=== PATIENT | male | born 1975 | race African-American/Black ===

== ENCOUNTER 2018-03-22 21:35 | Inpatient (IN) | payer OTHER ==
[~2018-03-22] VITALS: Ht 167.6 cm; Wt 81.6 kg
[2018-03-22 21:48] VITALS: BP 148/58
--- NOTE | 2018-03-22 21:48 | NUR ---
ED Nurse Note: PTCAME TO ED C/O OF ABD NAIMA FOR 4 HOURS TODAY PT HAS HAD PREVIOUS HERNIAL OPERATION. PER PT PAIN 10/10 PAIN IS ON LEFT UPPER QUDRANT
--- NOTE | 2018-03-22 21:51 | Emergency Room Report ---
History of Present Illness General Chief Complaint: Abdominal Pain Source: Patient Present Illness HPI Is a 42-year-old male who had a recent left inguinal hernia surgery done at [facility] 4 days ago. Since then he had bowel movement and eating okay. He presents with abdominal pain started about 4 hours ago. Mostly in the right side. Pain is sharp and crampy. 9 out of 10. Worse with palpation. Worse with movement. No relief with his hydrocodone. Denies any fever chills but denies any trauma. No diarrhea. No vomiting. Allergies: Coded Allergies: No Known Allergies (Unverified , 03/22/18) Patient History Past Medical History: see triage record, old chart reviewed Past Surgical History: other Pertinent Family History: none Social History: Denies: smoking Immunizations: other Reviewed Nursing Documentation: PMH: Agreed; PSxH: Agreed Nursing Documentation-PMH Past Medical History: No History, Except For Hx Hypertension: Yes Review of Systems Eye: Denies: eye pain, blurred vision ENT: Denies: ear pain, nose congestion, throat swelling Respiratory: Denies: cough, shortness of breath Cardiovascular: Denies: chest pain, palpitations Gastrointestinal: Reports: abdominal pain; Denies: diarrhea, nausea, vomiting Musculoskeletal: Denies: back pain, joint pain Skin: Denies: rash Neurological: Denies: headache, numbness Endocrine: Denies: increased thirst, increased urine Hematologic/Lymphatic: Denies: easy bruising All Other Systems: negative except mentioned in HPI Physical Exam Vital Signs Date Time Temp Pulse Resp B/P (MAP) Pulse Ox O2 Delivery O2 Flow Rate FiO2 03/22/18 21:28 97.5 88 16 148/58 96 Room Air vitals unremarkable Sp02 EP Interpretation: reviewed, normal General Appearance: well appearing, no apparent distress, alert Head: normocephalic, atraumatic Eyes: bilateral eye PERRL, bilateral eye EOMI ENT: hearing grossly normal, normal pharynx Neck: full range of motion, supple, no meningismus Respiratory: chest non-tender, lungs clear, normal breath sounds Cardiovascular #1: regular rate, rhythm, no murmur Gastrointestinal: normal bowel sounds, no mass, no organomegaly, no bruit, non- distended, tenderness - Diffuse, other - Surgical sites clean and dry. Musculoskeletal: back normal, gait/station normal, normal range of motion Psychiatric: mood/affect normal Skin: warm/dry Medical Decision Making Diagnostic Impression: Primary Impression: SBO (small bowel obstruction) ER Course Patient presents with abdominal pain and had small bowel obstruction on CT scan. NG tube placed. Ration is kept nothing by mouth. Patient will be admitted with surgical consultation. I discussed case with Dr. Patrick who will admit. I consulted Dr. Harrell for surgery. Lab Results Impression labs normal Other X-Ray Diagnostic Results Other X-Ray Diagnostic Results : X-Ray ordered: KUB # of Views/Limited Vs Complete: 1 View Indication: Pain EP Interpretation: Yes Interpretation: no dislocation, no soft tissue swelling, no fractures, nonspecific bowel gas, other - NG tube in good position Impression: Other - NGT in stomach Electronically Signed by: Jomar Ruano MD CT/MRI/US Diagnostic Results CT/MRI/US Diagnostic Results : Imaging Test Ordered: CT abdomen and pelvis Impression SBO per radiologist Last Vital Signs Date Time Temp Pulse Resp B/P (MAP) Pulse Ox O2 Delivery O2 Flow Rate FiO2 03/22/18 21:28 97.5 88 16 148/58 96 Room Air Status: improved Disposition: ADMITTED INPATIENT Condition: Serious Jomar Ruano MD Mar 22, 2018 21:51
[2018-03-22] MEDS ORDERED: Morphine Sulfate 4mg/ml Inj (IV/IM USE ONLY) IVP ONE (22:00)
--- NOTE | 2018-03-22 22:05 | NUR ---
ED Nurse Note: PT WENT TO CT
[2018-03-22] MEDS ORDERED: AMLODIPINE BESY10 MG ORAL (22:11)
[2018-03-22] MEDS ORDERED: NORCO 5-325 TA1 EACH ORAL (22:12)
[2018-03-22 22:18] LABS: EOSINOPHILS % (AUTO) 0.9 % (0.0-3.0); HEMATOCRIT 36.8 % (42.0-52.0); HEMOGLOBIN 12.5 G/DL (14.2-18.0); LYMPHOCYTES % (AUTO) 20.8 % (20.0-45.0); MEAN CORPUSCULAR VOLUME 89 FL (80-99); MONOCYTES % (AUTO) 4.3 % (1.0-10.0); PLATELET COUNT 166 K/UL (150-450); RED BLOOD COUNT 4.15 M/UL (4.70-6.10); RED CELL DISTRIBUTION WIDTH 11.3 % (11.6-14.8); WHITE BLOOD COUNT 9.4 K/UL (4.8-10.8)
[2018-03-22 22:20] LABS: APPEARANCE,URINE CLEAR; BILIRUBIN, URINE NEGATIVE (NEGATIVE); COLOR,URINE PALE YELLOW; GLUCOSE, URINE (UA) NEGATIVE (NEGATIVE); KETONES,URINE 4+ (NEGATIVE); LEUKOCYTE ESTERASE ,URINE 1+ (NEGATIVE); NITRITE,URINE NEGATIVE (NEGATIVE); PH,URINE 5 (4.5-8.0); PROTEIN,URINE 1+ (NEGATIVE); UROBILINOGEN,URINE NORMAL MG/DL (0.0-1.0)
--- NOTE | 2018-03-22 22:21 | NUR ---
ED Nurse Note: PT BACK FROM CT
[2018-03-22 22:33] LABS: ALANINE AMINOTRANSFERASE 17 U/L (12-78); ALBUMIN/GLOBULIN RATIO 0.9 (1.0-2.7); ALKALINE PHOSPHATASE 69 U/L (46-116); ANION GAP 9 mmol/L (5-15); ASPARTATE AMINO TRANSFERASE 19 U/L (15-37); BILIRUBIN,TOTAL 1.1 MG/DL (0.2-1.0); BLOOD UREA NITROGEN 13 mg/dL (7-18); CALCIUM 9.2 MG/DL (8.5-10.1); CARBON DIOXIDE 30 MMOL/L (21-32); CHLORIDE 100 MMOL/L (98-107); CREATININE 1.3 MG/DL (0.55-1.30); POTASSIUM 3.7 MMOL/L (3.5-5.1); SODIUM 139 MMOL/L (136-145)
[2018-03-22 22:36] LABS: BILIRUBIN,DIRECT 0.2 MG/DL (0.0-0.3)
--- NOTE | 2018-03-22 23:06 | NUR ---
ED Nurse Note: PT NG PALCE PER ERMD, ORDER PT VOMITED, AMOUNT SUCTIONED OF RIGHT NOW 750 ML
[2018-03-22 23:16] VITALS: BP 142/87
--- NOTE | 2018-03-22 23:24 | NUR ---
ED Nurse Note: TELEPHONE REPORT GIVEN TO AYE MOODY
--- NOTE | 2018-03-22 23:40 | NUR ---
ED Nurse Note: awaiting pt packet that transfer pt
--- NOTE | 2018-03-22 23:58 | NUR ---
ED Nurse Note: PT WAS TRANSFERRED WITH [facility], ALL BELONGINGS TAKEN WITH PT. PT IS AOX4, NG INTACT AND PATENT, PT IS ON ROOM AIR. VSS.
[2018-03-23] VITALS: BP 123/80
--- NOTE | 2018-03-23 00:18 | NUR ---
NURSE NOTES: Received pt from ED. Ambulatory and alert & oriented x4, belongings given to . No distress noted. NGT on low intermittent suction. Attempted to contact Dr. Patrick for admission orders. Awaiting for response. Pt in stable condition. Will continue to monitor.
--- NOTE | 2018-03-23 03:01 | NUR ---
NURSE NOTES: Still waiting for Dr. Patrick's admission orders. Left another message, attempting to contact
[2018-03-23] MEDS ORDERED: Morphine Sulfate 2mg/ml Inj IVP PRN (03:15)
[2018-03-23 04:00] VITALS: BP 128/73
--- NOTE | 2018-03-23 07:01 | NUR ---
HAND-OFF: Report given to AYE Christensen.
--- NOTE | 2018-03-23 07:54 | NUR ---
NURSE NOTES: pt in bed with no sob nor in any form of distress noted. NG tube intact and connected to LIS. no c/o discomfort nor n/v at this time. denies any abdomen pain. will continue to monitor
[2018-03-23 08:00] VITALS: BP 134/79
--- NOTE | 2018-03-23 09:14 | Diagnostic Imaging Report ---
Indication: Abdominal pain, 4 days status post left inguinal hernia surgery Technique: Spiral acquisitions obtained through the abdomen and pelvis. No oral contrast utilized, per emergency room physician request No IV contrast utilized, per emergency room physician request.. Multiplanar reconstructions were generated. Total dose length product 622.46 mGycm. CTDIvol(s) 11.12 mGy. Dose reduction achieved using automated exposure control Comparison: None Findings: Small line of surgical skin mariaelena is seen in the left upper quadrant, and another in the left lower quadrant. There is no evidence of recurrent inguinal hernia. There is a small amount of free intraperitoneal fluid present, in the pelvis, right paracolic gutter and Morison's pouch, and over the dome of the liver. Bubbles of gas are seen in the central peritoneal space and over the anterior dome of the liver. There is some fluid in between the layers of the left upper quadrant abdominal wall musculature. There is a small fluid containing umbilical hernia. In the left lower quadrant and left mid abdomen, there are dilated small bowel loops which contain small bowel feces distally. Distal small bowel loops are normal in caliber or collapsed. Exact transition point is not identified although may be in the lower central mid abdomen. The appendix is normal. No small bowel wall thickening. The stomach is distended. The distal esophagus is unremarkable. Lack of IV contrast limits assessment of the solid organs. The liver, gallbladder, bile ducts, pancreas, spleen, adrenals and kidneys are all unremarkable. No retroperitoneal or mesenteric mass or adenopathy. No pelvic mass or adenopathy. The included lung bases demonstrate posterior dependent atelectatic changes. The bones demonstrate minimal degenerative thoracic spondylosis changes. Impression: Dilated small bowel loops with small bowel feces and transition to collapsed distal small bowel in the lower midabdomen, suspicious for small bowel obstruction. Given history of recent surgery, possibility of an atypical manifestation of postoperative ileus should also be considered. Postsurgical changes, as described Gastric distention, presumably related to the above Posterior dependent atelectatic pulmonary parenchymal changes This agrees with the preliminary interpretation provided overnight by [facility] teleradiology service. Critical value findings were provided to the emergency room by [facility] and communication documented The CT scanner at [facility] is accredited by the [employer] and the scans are performed using protocols designed to limit radiation exposure to as low as reasonably achievable to attain images of sufficient resolution adequate for diagnostic evaluation.
[2018-03-23] MEDS: Piperacillin/Tazobactam 3.375 GM in NS 110 ML IVPB SCH ×2 (09:15→18:05)
--- NOTE | 2018-03-23 09:15 | History and Physical Report ---
DATE OF ADMISSION: 03/22/2018 CHIEF COMPLAINT: Small bowel obstruction. HISTORY OF PRESENT ILLNESS: The patient is a pleasant 42-year-old male. He had an elective hernia repair done approximately 4 to 5 days ago. He was discharged home. According to the patient, he has had approximately 2 bowel movements that were only small since his surgery. On evaluation of the emergency room, he had a CT scan of the abdomen that showed a small bowel obstruction. NG tube was placed. The patient is now admitted. PAST MEDICAL HISTORY: Significant for history of hypertension. PAST SURGICAL HISTORY: As above. CURRENT MEDICATIONS: Reconciled and reviewed. ALLERGIES: None. FAMILY HISTORY: None. SOCIAL HISTORY: Negative for tobacco, ethanol, or drugs. REVIEW OF SYSTEMS: Negative except for abdominal pain. PHYSICAL EXAMINATION: VITAL SIGNS: Temperature 98.5, pulse 78, respirations 18, and blood pressure 128/73. GENERAL: The patient is well developed and in no apparent distress. HEART: Regular rate and rhythm. LUNGS: Clear. ABDOMEN: Soft, nontender, and nondistended. EXTREMITIES: Without clubbing, cyanosis, or edema. LABORATORY DATA: Sodium 139, potassium 3.7, BUN 13, and creatinine 1.3. White count was 9 and hemoglobin 12. Urine was clear. ASSESSMENT: This is a pleasant male, status post inguinal hernia repair, admitted now with small bowel obstruction. PLAN: 1. NPO. 2. NG tube to low-intermittent suction. 3. Antibiotics. 4. Surgical consultation. 5. Narcotics if possible. Ian Patrick M.D. DR: NICHOLE JOB#: [id number] CC:
--- NOTE | 2018-03-23 11:51 | Diagnostic Imaging Report ---
Indication: Post nasogastric tube placement Technique: Supine view of the abdomen Comparison: none Findings: Nasogastric tube in place, tip ejected level gastric fundus, proximal port just beyond the expected region of the gastroesophageal junction. Surgical mariaelena are seen in the left upper quadrant and left lower quadrant. Impression: Satisfactory nasogastric tube placement Other findings as described
[2018-03-23 12:00] VITALS: BP 127/80
--- NOTE | 2018-03-23 12:48 | Consultation ---
History of Present Illness General Date patient seen: Mar 23, 2018 Reason for Hospitalization: Abdominal Pain Present Illness HPI 42M s/p lap ventral hernia repair at [facility] 2018 presented to ED with worsening abdominal pain, nausea, emesis. states that after surgery initially okay but then began to have worsening abdominal pain. pain cramping bloated pain. minimal flatus. small bm's. nausea and non blood emesis. came to ED for evaluation. CT noted sbo. surgery called to evaluate. patient seen, chart reviewed, patient examined. Allergies: Coded Allergies: No Known Allergies (Unverified , 03/22/18) Medication History Scheduled Amlodipine Besylate* (Amlodipine Besylate*), 10 MG ORAL DAILY, (Reported) Scheduled PRN Hydrocodone Bit/Acetaminophen 5-325* ([place] 5-325*), 1 TAB ORAL Q4H PRN for For Pain, (Reported) Patient History History Provided By: Patient, Medical Record, PMD Healthcare decision maker Resuscitation status Full Code Advanced Directive on File Past Medical/Surgical History Past Medical/Surgical History: (1) SBO (small bowel obstruction) Review of Systems Review of Symptoms General ROS: no weight loss or fever Psychological ROS: no depression or mood changes, no memory loss Ophthalmic ROS: no visual changes or eye irritation ENT ROS: no nasal congestion, hearing loss, dizziness Allergy and Immunology ROS: no allergic symptoms or urticaria Hematological and Lymphatic ROS: no swollen glands, unusual bleeding or bruising Endocrine ROS: no polyuria, polydipsia, weight changes, temperature intolerance Respiratory ROS: no cough, shortness of breath, or wheezing Cardiovascular ROS: no chest pain or dyspnea on exertion Gastrointestinal ROS: denies abdominal pain, bright red blood in stool. Musculoskeletal ROS: no myalgias or arthralgias Neurological ROS: no TIA or stroke symptoms Dermatological ROS: no new or changing skin lesions, rashes or pruritis Physical Exam Physical Exam General appearance: alert, cooperative, no distress, appears stated age Head: Normocephalic, without obvious abnormality, atraumatic Eyes: conjunctivae/corneas clear. PERRL, EOM's intact. Fundi benign Throat: Lips, mucosa, and tongue normal. Teeth and gums normal Neck: supple, symmetrical, trachea midline, no adenopathy, thyroid: not enlarged, symmetric, no tenderness/mass/nodules, no carotid bruit and no JVD Lungs: clear to auscultation bilaterally Heart: regular rate and rhythm, S1, S2 normal, no murmur, click, rub or gallop Abdomen: soft, incisional tender. Bowel sounds decreased. No masses, no organomegaly. distended Extremities: extremities normal, atraumatic, no cyanosis or edema Pulses: 2+ and symmetric Skin: Skin color, texture, turgor normal. No rashes or lesions Neurologic: Grossly normal Last 24 Hour Vital Signs Date Time Temp Pulse Resp B/P (MAP) Pulse Ox O2 Delivery O2 Flow Rate FiO2 03/23/18 09:32 Room Air 03/23/18 08:00 99.3 83 18 134/79 (97) 98 03/23/18 04:00 98.5 78 18 128/73 (91) 97 03/23/18 00:23 Room Air 03/23/18 00:00 98.4 88 18 123/80 (94) 95 03/22/18 23:55 98.3 91 30 142/87 10 03/22/18 23:35 97.4 03/22/18 23:16 97.4 91 30 142/87 100 Room Air 03/22/18 21:48 97.5 88 16 148/58 96 Room Air 03/22/18 21:48 88 16 Room Air 03/22/18 21:28 97.5 88 16 148/58 96 Room Air Intake and Output 03/22/18 03/23/18 18:59 06:59 Intake Total 1000 ml Output Total 176 ml Balance 824 ml Intake IV Total 1000 ml Output Urine Total 1 ml Gastric Drainage Total 175 ml # Voids 1 Laboratory Tests Test 03/22/18 21:46 White Blood Count 9.4 K/UL (4.8-10.8) Red Blood Count 4.15 M/UL (4.70-6.10) L Hemoglobin 12.5 G/DL (14.2-18.0) L Hematocrit 36.8 % (42.0-52.0) L Mean Corpuscular Volume 89 FL (80-99) Mean Corpuscular Hemoglobin 30.1 PG (27.0-31.0) Mean Corpuscular Hemoglobin Concent 34.0 G/DL (32.0-36.0) Red Cell Distribution Width 11.3 % (11.6-14.8) L Platelet Count 166 K/UL (150-450) Mean Platelet Volume 7.5 FL (6.5-10.1) Neutrophils (%) (Auto) 73.0 % (45.0-75.0) Lymphocytes (%) (Auto) 20.8 % (20.0-45.0) Monocytes (%) (Auto) 4.3 % (1.0-10.0) Eosinophils (%) (Auto) 0.9 % (0.0-3.0) Basophils (%) (Auto) 1.0 % (0.0-2.0) Urine Color Pale yellow Urine Appearance Clear Urine pH 5 (4.5-8.0) Urine Specific [place] 1.015 (1.005-1.035) Urine Protein 1+ (NEGATIVE) H Urine Glucose (UA) Negative (NEGATIVE) Urine Ketones 4+ (NEGATIVE) H Urine Blood 1+ (NEGATIVE) H Urine Nitrite Negative (NEGATIVE) Urine Bilirubin Negative (NEGATIVE) Urine Urobilinogen Normal MG/DL (0.0-1.0) Urine Leukocyte Esterase 1+ (NEGATIVE) H Urine RBC 0-2 /HPF (0 - 0) H Urine WBC 0-2 /HPF (0 - 0) Urine Squamous Epithelial Cells None /LPF (NONE/OCC) Urine Bacteria Occasional /HPF (NONE) Urine Mucus Many /LPF (NONE/OCC) H Sodium Level 139 MMOL/L (136-145) Potassium Level 3.7 MMOL/L (3.5-5.1) Chloride Level 100 MMOL/L (98-107) Carbon Dioxide Level 30 MMOL/L (21-32) Anion Gap 9 mmol/L (5-15) Blood Urea Nitrogen 13 mg/dL (7-18) Creatinine 1.3 MG/DL (0.55-1.30) Estimat Glomerular Filtration Rate > 60 mL/min (>60) Glucose Level 98 MG/DL (74-106) Calcium Level 9.2 MG/DL (8.5-10.1) Total Bilirubin 1.1 MG/DL (0.2-1.0) H Direct Bilirubin 0.2 MG/DL (0.0-0.3) Aspartate Amino Transf (AST/SGOT) 19 U/L (15-37) Alanine Aminotransferase (ALT/SGPT) 17 U/L (12-78) Alkaline Phosphatase 69 U/L (46-116) Total Protein 8.5 G/DL (6.4-8.2) H Albumin 4.0 G/DL (3.4-5.0) Globulin 4.5 g/dL Albumin/Globulin Ratio 0.9 (1.0-2.7) L Lipase 138 U/L (73-393) Height (Feet): 5 Height (Inches): 6.00 Weight (Pounds): 180 Medications Current Medications Medications (Trade) Dose Ordered Sig/Fiona Route PRN Reason Start Time Stop Time Status Last Admin Dose Admin Morphine Sulfate (Morphine Sulfate) 2 mg Q4H PRN IVP For Pain 03/23/18 03:15 03/30/18 03:14 Ondansetron HCl (Zofran) 4 mg Q4H PRN IVP Nausea & Vomiting 03/23/18 03:15 04/22/18 03:14 Piperacillin Sod/ Tazobactam Sod 3.375 gm/Sodium Chloride 110 ml @ 27.5 mls/hr Q8H IVPB 03/23/18 09:00 03/30/18 08:59 03/23/18 09:15 Sodium Chloride 1,000 ml @ 125 mls/hr Q8H IV 03/23/18 04:00 04/22/18 03:59 03/23/18 03:35 Assessment/Plan Problem List: (1) SBO (small bowel obstruction) Assessment & Plan: 42M s/p lap ventral hernia repair post op pain, abd distention, discomfort, no significant flatus or BM CT w/ Dilated small bowel loops with small bowel feces and transition to collapsed distal small bowel in the lower midabdomen, suspicious for small bowel obstruction. Given history of recent surgery, possibility of an atypical manifestation of postoperative ileus should also be considered. NPO IV fluids IV abx small bowel follow through with gastrograffin ordered will follow with recs thank you ICD Codes: K56.609 - Unspecified intestinal obstruction, unspecified as to partial versus complete obstruction SNOMED: [id number] YovanypaulKiel Mar 23, 2018 12:48
--- NOTE | 2018-03-23 17:39 | Diagnostic Imaging Report ---
Indication: Abdominal pain, suspicion of small bowel obstruction on earlier CT scan Technique: 240 mL of water-soluble contrast injected via nasogastric tube. Serial overhead films obtained for 2 hours Comparison: Reference made to CT scan and abdominal radiograph of 03/22/2018 Findings: Pin Worker film demonstrates nasogastric tube projected level gastric fundus. Surgical mariaelena are seen in the left mid abdomen and left lower quadrant. There are mild degenerative changes of the bilateral hips. Bowel gas pattern demonstrates mildly distended small bowel loops and upper limits normal caliber colon containing considerable stool. Subsequent images demonstrate prompt progression of contrast through the small bowel. Small bowel is nondilated, and the mucosal pattern is unremarkable. Contrast is seen within the cecum at 1.5 hours and as far distally as the distal descending colon at 2 hours Impression: Essentially unremarkable small bowel study, with brisk transit of contrast through the small bowel, reaching the colon at 1.5 hours ago. Incidental findings as noted
--- NOTE | 2018-03-23 18:35 | NUR ---
NURSE NOTES: pt had big bowel mov't x3 hard and soft. pt stated feeling much better. pt asked RN to be removed the NG tube. Called Dr. Harrell and received an order to D/C NG tube and change diet to CL. noted and carried out
--- NOTE | 2018-03-23 19:21 | NUR ---
HAND-OFF: Report given to AYE Orozco.
--- NOTE | 2018-03-23 19:30 | NUR ---
NURSE NOTES: Received a report from AYE Luna. Pt is in stable condition. AAOX4. Able to make needs known. No respiratory distress noted. On room air. No c/o pain/discomfort. IV site is patent and intact. Bed in lowest position. Call light within reach. Will continue to monitor.
[2018-03-23 20:00] VITALS: BP 126/79
--- NOTE | 2018-03-23 20:24 | NUR ---
CASE MANAGEMENT: REVIEW 42/M PRESENTED TO ED FROM HOME CC: ABD PAIN SI: SBO T 97.5 HR 91 RR 30 BP 148/58 SAT 96% ROOM AIR H/H 12.5/36.8 IS: NS IVF BOLUS X1 MORPHINE IV X1 PATIENT ADMITTED TO MED/SURG UNIT 03/22/2018 DCP: PATIENT IS FROM HOME
[2018-03-24] VITALS: BP 113/74
[2018-03-24] MEDS: Piperacillin/Tazobactam 3.375 GM in NS 110 ML IVPB SCH ×2 (00:47→10:15)
[2018-03-24 04:00] VITALS: BP 116/77
--- NOTE | 2018-03-24 07:10 | NUR ---
HAND-OFF: Report given to Jeremy Christensen RN.
--- NOTE | 2018-03-24 07:21 | NUR ---
NURSE NOTES: Received pt with stable condition. pt denies any n/v. 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 will continue to monitor
[2018-03-24 08:00] VITALS: BP 107/71
--- NOTE | 2018-03-24 08:25 | General Progress Note ---
Assessment/Plan Problem List: (1) SBO (small bowel obstruction) ICD Codes: K56.609 - Unspecified intestinal obstruction, unspecified as to partial versus complete obstruction SNOMED: [id number] Status: progressing Assessment/Plan PO per surgery improving dc planning when cleared by surgery Subjective ROS Limited/Unobtainable: No Constitutional: Reports: malaise, weakness HEENT: Reports: no symptoms Cardiovascular: Reports: no symptoms Respiratory: Reports: no symptoms Gastrointestinal/Abdominal: Reports: no symptoms Genitourinary: Reports: no symptoms Neurologic/Psychiatric: Reports: no symptoms Endocrine: Reports: no symptoms Hematologic/Lymphatic: Reports: no symptoms Allergies: Coded Allergies: No Known Allergies (Unverified , 03/22/18) All Systems: reviewed and negative except above Subjective ngt out. tolerating clears. 2 small BMs. no abd pain Objective Last 24 Hour Vital Signs Date Time Temp Pulse Resp B/P (MAP) Pulse Ox O2 Delivery O2 Flow Rate FiO2 03/24/18 04:00 96.7 73 16 116/77 (90) 96 03/24/18 00:00 97.5 69 16 113/74 (87) 98 03/23/18 21:00 Room Air 03/23/18 20:00 96.8 79 17 126/79 (95) 96 03/23/18 12:00 99.6 81 20 127/80 (96) 98 03/23/18 09:32 Room Air Intake and Output 03/23/18 03/24/18 19:00 07:00 Intake Total 1610.0 ml 1590.0 ml Balance 1610.0 ml 1590.0 ml Intake Oral 1500 ml 480 ml IV Total 110.0 ml 1110.0 ml # Voids 2 # Bowel Movements 1 Height (Feet): 5 Height (Inches): 6.00 Weight (Pounds): 180 General Appearance: WD/WN Neck: supple Cardiovascular: regular rhythm Respiratory/Chest: lungs clear Abdomen: normal bowel sounds, non tender, soft, no organomegaly, no mass Edema: no edema noted Arm (L), no edema noted Arm (R), no edema noted Leg (L), no edema noted Leg (R), no edema noted Pedal (L), no edema noted Pedal (R), no edema noted Generalized Ian Patrick MD Mar 24, 2018 08:25
[2018-03-24 12:00] VITALS: BP 119/76
--- NOTE | 2018-03-24 12:36 | NUR ---
CHARGE NURSE NOTE: Pt will be discharged home today. was called and asked for med.recon. No meds were ordered.
--- NOTE | 2018-03-24 14:10 | NUR ---
NURSE NOTES: pt discharged to home with stable condition via uber. Denies any n/v nor abdominal pain. All discharge instruction given to pt and verbalized understanding. IV heplock removed and covered with guaze and taped. VSS.
--- NOTE | 2018-03-24 14:16 | Surgery Progress Note ---
Surgery Progress Note Subjective Additional Comments had large BM after contrast study. no obstruction. improving. pain resolved. no n/v/f/c. tolerating diet. Objective Last 24 Hour Vital Signs Date Time Temp Pulse Resp B/P (MAP) Pulse Ox O2 Delivery O2 Flow Rate FiO2 03/24/18 12:00 98.1 71 18 119/76 (90) 99 03/24/18 09:44 Room Air 03/24/18 08:00 98.2 88 18 107/71 (83) 99 03/24/18 04:00 96.7 73 16 116/77 (90) 96 03/24/18 00:00 97.5 69 16 113/74 (87) 98 03/23/18 21:00 Room Air 03/23/18 20:00 96.8 79 17 126/79 (95) 96 I&O Intake and Output 03/23/18 03/24/18 18:59 06:59 Intake Total 1610.0 ml 1590.0 ml Balance 1610.0 ml 1590.0 ml Intake Oral 1500 ml 480 ml IV Total 110.0 ml 1110.0 ml # Voids 2 # Bowel Movements 1 Cardiovascular: RSR Respiratory: clear Abdomen: soft, non-tender, present bowel sounds, non-distended Extremities: no tenderness, no cyanosis Plan Problems: (1) SBO (small bowel obstruction) Assessment & Plan: 42M s/p lap ventral hernia repair post op pain, abd distention, discomfort, no significant flatus or BM CT w/ Dilated small bowel loops with small bowel feces and transition to collapsed distal small bowel in the lower midabdomen, suspicious for small bowel obstruction. Given history of recent surgery, possibility of an atypical manifestation of postoperative ileus should also be considered. SB series without abnormality. no obstruction symptoms resolved after BM tolerating diet labs okay diet as tolerated bowel regimen okay to d/c home f/u with primary surgeon next week as scheduled. will follow with recs thank you Kiel Harrell Mar 24, 2018 14:16
--- NOTE | 2018-03-25 13:15 | Discharge Summary ---
Discharge Summary Discharge Summary _ DATE OF ADMISSION: 03/22/2018 DATE OF DISCHARGE: 03/24/2018 DISCHARGED BY: Dr. Patrick REASON FOR ADMISSION: 42 years old male with past medical history of hypertension , had recent elective ventral hernia repair , and was discharged home. According to the patient , he had 2 small bowel movements since the surgery. Patient presented with sharp and crampy abdominal pain, 9 out of 10, started 4 hours prior to presentation to emergency department , located on the right side. Pain was worse with palpation of the area and movement. He denied fever and chills. He denied any trauma or fall. No nausea, no vomiting, no diarrhea. Upon evaluation vital signs were stable. Laboratory workup revealed no leukocytosis, hemoglobin 12.5, hematocrit 36.8. Stable electrolytes and renal parameters , stable LFT. Urinalysis revealed no evidence of UTI. CT scan of the abdomen and pelvis revealed dilated small bowel loops with small bowel feces and transition to collapsed distal small bowel in the lower midabdomen, suspicious for small bowel obstruction. NG tube was placed in the emergency department . KUB subsequently was done and confirmed satisfactory nasogastric tube placement. Surgeon consulted for further evaluation, and patient was admitted for further management. CONSULTANTS: surgery Dr. Harrell [facility] COURSE: Patient admitted to medical surgical floor. Patient was kept n.p.o. and started on IV fluids. Pain management was addressed. Antiemetic provided as needed Bowel rest with NG tube decompression with low intermittent suction provided. Patient started on empiric antibiotics. Surgeon seen and evaluated patient. Small bowel follow-through with Gastrografin was ordered, which was essentially unremarkable. NG tube was discontinued. Bowel regimen instituted. Patient was slowly started on diet and was advanced as tolerated. Patient reported significant improvement in symptoms after bowel movement. Patient clinically stabilized and was ready for discharge home. FINAL DIAGNOSES: status post ventral hernia repair small bowel obstruction DISCHARGE MEDICATIONS: See Medication Reconciliation list. DISCHARGE INSTRUCTIONS: Patient was discharged home. Follow up with primary care provider in one week. I have been assigned to dictate discharge summary for this account. I was not involved in the patient's management. Mary Alcala NP Mar 25, 2018 13:15
--- NOTE | 2018-03-25 15:51 | NUR ---
*-* INSURANCE *-* ALL CLINICALS HAVE BEEN FAXED TO: [facility]: MANAGER FRAUD: DANDY GODOY T#: [phone] F#: [phone] PLEASE FAX CLINICALS TO ABOVE
== END 2018-03-24 14:10 | disposition home or self-care (01) | DRG 247 ==
LOC: EMR 21:56 → 4E 22:55 → EDBEDREQ 23:37 → 4E 03-24 00:09
DX: K56.609 Unspecified intestinal obstruction, unspecified as to partial versus complete obstruction (principal); I10 Essential (primary) hypertension; Z98.890 Other specified postprocedural states
CPT/HCPCS: 36415; 74018; 74176; 74250; 80053; 81003; 82248; 83690; 85025; 96361; 96374; 96375; 99285; J2405